=== PATIENT | female | born 1990 | race African-American/Black ===

== ENCOUNTER 2024-12-07 09:37 | Emergency (ER) | payer SELFPAY ==
[~2024-12-07] VITALS: Ht 149.9 cm; Wt 74.8 kg
[2024-12-07] MEDS ORDERED: NASACORT16.9 ML (10:20)
[2024-12-07] MEDS ORDERED: DIPHENHYDRAMINE25 M2 PO (10:20)
[2024-12-07] MEDS ORDERED: TYLENOL325 MG PO (10:20)
[2024-12-07] MEDS ORDERED: ACETAMINOPHEN 325 MG TAB ONE (10:35)
[2024-12-07] MEDS: IBUPROFEN 600 MG TAB PO STA (10:41)
[2024-12-07] MEDS: ACETAMINOPHEN 325 MG TAB PO ONE (10:41)
[2024-12-07 10:45] VITALS: PULSE 80; RESP 16; TEMP 97.5; O2SAT 100
== END 2024-12-07 10:45 | disposition home or self-care (01) ==
LOC: FSED 09:42
DX: J30.9 Allergic rhinitis, unspecified (principal); J02.9 Acute pharyngitis, unspecified; R09.89 Other specified symptoms and signs involving the circulatory and respiratory systems; Z11.52 Encounter for screening for COVID-19
CPT/HCPCS: 0223U; 83518; 87400; 99283